=== PATIENT | female | born 1940 | race Two or more races ===

== ENCOUNTER 2021-07-09 09:30 | Inpatient (IN) | payer OTHER ==
[~2021-07-09] VITALS: Ht 162.6 cm; Wt 83.0 kg
[2021-07-09] MEDS ORDERED: AMARY PO (12:34)
[2021-07-09] MEDS ORDERED: LOTREL PO (12:34)
[2021-07-09] MEDS ORDERED: GABAPEN PO (12:35)
[2021-07-09] MEDS ORDERED: SIMVASTAT PO (12:35)
[2021-07-14] MEDS ORDERED: BACLOFEN10 MG (07:53)
[2021-07-14] MEDS ORDERED: AMLODIPINE-BEN1 EAC2 (07:53)
[2021-07-14] MEDS ORDERED: LEVSIN0.125 MG (07:53)
[2021-07-14] MEDS ORDERED: CVS CALCIUM (07:54)
[2021-07-14] MEDS ORDERED: DICLOFENAC SOD100 GM (07:54)
[2021-07-14] MEDS ORDERED: VITAMIN D350 MC3 (07:54)
[2021-07-14] MEDS ORDERED: GLIMEPIRIDE4 M1 (07:54)
[2021-07-14] MEDS ORDERED: SIMVASTATIN20 MG (07:54)
[2021-07-14] MEDS ORDERED: GABAPENTIN300 M2 (07:54)
[2021-07-14] MEDS ORDERED: OMEPRAZOLE20 MG (07:54)
[2021-07-14] MEDS ORDERED: DULOXETINE HCL60 MG (07:54)
[2021-07-14] MEDS ORDERED: CELECOXIB200 MG (07:55)
[2021-07-16] MEDS ORDERED: OXYC1TAB9 PO (08:13)
[2021-07-16] MEDS ORDERED: INTEGRA PLUS C1 EACH PO (08:13)
[2021-07-16] MEDS ORDERED: BACTRIM DS TAB1 EACH PO (08:13)
[2021-07-16] MEDS ORDERED: XARELTO10 MG PO (08:13)
== END 2021-07-16 16:50 | DRG 470 ==
LOC: O/R 07-14 06:37 → SURG 07-14 06:37 → SURH 07-14 09:30 → SURG 07-14 15:22
PROVIDERS: ADMIT Orthopaedic Surgery Sports Medicine; ATTEND Orthopaedic Surgery Sports Medicine
PROC: 3E0F7SF Introduction of Other Gas into Respiratory Tract, Via Natural or Artificial Opening (ICD-10-PCS; 2021-07-14)
PROC: 0SRC0J9 Replacement of Right Knee Joint with Synthetic Substitute, Cemented, Open Approach (ICD-10-PCS; principal; 2021-07-14 10:45)
DX: M17.11 Unilateral primary osteoarthritis, right knee (principal); Z20.822 Contact with and (suspected) exposure to COVID-19